=== PATIENT | female | born 1970 | race Caucasian/White ===

== ENCOUNTER 2024-05-30 12:15 | Outpatient (REF) | payer BC, SELFPAY ==
--- NOTE | ~2024-05-30 | XR_ITS ---
EXAMINATION: XR KNEE, LEFT XR KNEE AP STANDING CLINICAL INFORMATION: Pain. COMPARISON: None TECHNIQUE: Lateral and axial views of the left knee are submitted. AP bilateral standing view of the knees was obtained. FINDINGS: The lateral joint space compartment of the right knee is well maintained, and there is moderately severe asymmetric narrowing of the medial joint space compartment, with peripheral osteophyte formation. The lateral and patellofemoral joint space compartments of the left knee are well-maintained, and there is marked asymmetric narrowing of the medial joint space compartment. There is tricompartment peripheral osteophyte formation. No fracture or dislocation is seen bilaterally. There is no left knee joint effusion. There is a mild bilateral varus configuration. XR/XR knee LT 3V IMPRESSION: 1. There is moderately severe osteoarthritic change of the medial joint space compartment of the right knee. 2. There is tricompartment osteoarthritic change of the left knee, most pronounced of the medial joint space compartment, where degenerative change is marked. 3. No fracture, dislocation or left knee joint effusion is seen. 4. There is a mild bilateral varus configuration. Electronically signed by: Joshua Curtis MD 06/27/2024 06:06 PM EDT
--- NOTE | ~2024-05-30 | XR_ITS ---
EXAMINATION: XR KNEE, LEFT XR KNEE AP STANDING CLINICAL INFORMATION: Pain. COMPARISON: None TECHNIQUE: Lateral and axial views of the left knee are submitted. AP bilateral standing view of the knees was obtained. FINDINGS: The lateral joint space compartment of the right knee is well maintained, and there is moderately severe asymmetric narrowing of the medial joint space compartment, with peripheral osteophyte formation. The lateral and patellofemoral joint space compartments of the left knee are well-maintained, and there is marked asymmetric narrowing of the medial joint space compartment. There is tricompartment peripheral osteophyte formation. No fracture or dislocation is seen bilaterally. There is no left knee joint effusion. There is a mild bilateral varus configuration. XR/XR knee RT 1V IMPRESSION: 1. There is moderately severe osteoarthritic change of the medial joint space compartment of the right knee. 2. There is tricompartment osteoarthritic change of the left knee, most pronounced of the medial joint space compartment, where degenerative change is marked. 3. No fracture, dislocation or left knee joint effusion is seen. 4. There is a mild bilateral varus configuration. Electronically signed by: Joshua Curtis MD 06/27/2024 06:06 PM EDT
== END 2024-05-30 12:16 | disposition home or self-care (01) ==
LOC: HO.HOSX 12:15
PROVIDERS: Visit Provider Physician Assistant
DX: M25.561 Pain in right knee (principal); M17.12 Unilateral primary osteoarthritis, left knee
CPT/HCPCS: 73560; 73562

== ENCOUNTER 2024-05-30 14:25 | Outpatient (AMB) | payer BC, SELFPAY ==
--- NOTE | 2024-05-30 14:50 | MHC.OFFVIS ---
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 Patient reports her pain has been present for about 2 years. She was seen at [facility] about 4 years ago where an aspiration and cortisone injection was given however she felt no relief with injection. She attended PT with some relief. Currently her pain is located at the medial aspect of knee. She has a clicking in her knee that increases her pain. Finds relief with Tylenol and Motrin if needed. 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 She was seen at [facility] about 4 years ago where she had an aspiration and cortisone injection which did not provide her any relief. She had attended physical therapy with some relief. She currently states she has pain at the medial aspect of her knee. She also experiences clicking in her knee that causes her pain. She finds relief with Tylenol and Motrin. She states she is here today to discuss alternatives to surgery as she wants to remain active and run. She is currently training for a triathalon. She states she is booked for a TKA in July, but will delay if she has alternative options. [facility] Social History (Updated 05/30/24 @ 14:51 by Ericka Gallegos Luana) Patient Tobacco Use Status: Never used Tobacco Current occupational status: employed Current occupation: desk work Review of Systems Const All systems reviewed & are unremarkable except as noted in HPI and below Physical Exam Const General: cooperative, healthy appearing, comfortable, no acute distress, well developed and alert Orientation/consciousness: patient oriented x3 HEENT Head: Yes normal to inspection, Yes normocephalic and Yes atraumatic Eyes General: appearance normal, both eyes and all related structures Resp Effort & Inspection: normal respiratory effort and able to speak in complete sentences Cardio Rate: regular rate Peripheral pulses: Peripheral pulses 2+ throughout GI Palpation (GI): Soft to palpation Skin Lesions: no lesions Rashes: no rashes Neuro General: patient oriented x3 Extrem Other: Left knee: Skin intact, no erythema or joint effusion. Tenderness along the medial and lateral joint line. Full ROM with crepitus. Negative Deyanira?s. No ligamentous laxity. NVI. ? Results Reviewed Results Reviewed: Xrays were obtained in the office today and personally reviewed by me of the left knee show medial collapse. Assessment & Plan Assessment & Plan (1) Osteoarthritis of left knee: Code(s): M17.12 - Unilateral primary osteoarthritis, left knee Category: Medical Plan We discussed in length the findings on images along with limitations in activities. She does have a TKA scheduled for July however she would like to discuss PRP injections and whether or not it could benefit her and delay a TKA. I did put her in contact with Dr. Ricks to discuss this further which she is content with. Orders: Orders XR knee RT 1V 05/30/24 M25.561 - Pain in right knee XR knee LT 3V 05/30/24 M25.562 - Pain in left knee Patient Instructions: Scribed for Sigifredo Razo PA-C, by Gopal Lopez diagnostic medical sonographer, on 05/30/2024 at 2:30 PM EST.? I, Sigifredo Razo PA-C, have personally reviewed and agree with the information entered by the scribe. Coding Level of Care Code New Pt Level 3 (47293) Diagnoses Osteoarthritis of left knee M17.12
== END 2024-05-31 21:26 | disposition home or self-care (01) ==
PROVIDERS: Visit Provider Physician Assistant
DX: M17.12 Unilateral primary osteoarthritis, left knee (principal)
CPT/HCPCS: 99203